=== PATIENT | male | born 1995 | race Hispanic/Latino ===

== ENCOUNTER 2023-05-18 13:35 | Inpatient (IN) | payer OTHER ==
[~2023-05-18] VITALS: Ht 180.3 cm; Wt 103.9 kg
[2023-05-18] MEDS ORDERED: MORPHINE 4 MG SYG ONE ×2 (13:58→19:14)
[2023-05-18] MEDS ORDERED: IOHEXOL 350 MG/ML 100ML INFUS..BTL IV ONE (14:03)
[2023-05-18 14:07] LABS: BASOPHILS # (AUTO) 0.09 K/uL (0.00-0.20); BASOPHILS % (AUTO) 0.6 % (0.0-5.0); EOSINOPHILS # (AUTO) 0.19 K/uL (0.00-0.70); EOSINOPHILS % (AUTO) 1.2 % (0.0-8.0); HEMATOCRIT 46.3 % (42-54); IMMATURE GRANULOCYTE ABSOLUTE 0.21 K/uL (0-1); LYMPHOCYTES # (AUTO) 3.8 K/uL (1.0-4.8); LYMPHOCYTES % (AUTO) 24.1 % (21.0-51.0); MEAN CORPUSCULAR HEMOGLOBIN 28.2 pg (27.0-33.0); MEAN CORPUSCULAR HGB CONC 34.6 g/dL (32.0-36.0); MEAN CORPUSCULAR VOLUME 81.5 fL (79-99); MONOCYTES # (AUTO) 0.9 K/uL (0.1-1.0); MONOCYTES % (AUTO) 5.4 % (3.0-13.0); NEUTROPHILS # (AUTO) 10.5 K/uL (1.8-7.7); NEUTROPHILS % (AUTO) 67.4 % (40.0-77.0); PLATELET COUNT (AUTO) 380 K/uL (130-400); RED BLOOD CELL COUNT(AUTO) 5.68 MIL/uL (4.50-6.20); RED CELL DISTRIBUTION WIDTH 12.1 % (11.0-15.5); WHITE BLOOD COUNT (AUTO) 15.6 K/uL (4.8-10.8)
[2023-05-18 14:16] LABS: POTASSIUM 4.2 mmol/L (3.5-5.1)
[2023-05-18 14:20] LABS: ALBUMIN 4.3 g/dL (3.5-5.0); BILIRUBIN,TOTAL 0.4 mg/dL (0.2-1.0); CREATINE KINASE, TOTAL 279 U/L (21-232); TOTAL PROTEIN, SERUM 8.5 g/dL (6.0-8.3)
[2023-05-18 14:21] LABS: ALCOHOL, BLOOD < 3 mg/dL (0-10)
[2023-05-18 14:48] LABS: APPEARANCE,URINE CLEAR (CLEAR); BILIRUBIN,URINE NEGATIVE (NEGATIVE); COLOR,URINE LIGHT-YELLOW (YELLOW); GLUCOSE, URINE (UA) NEGATIVE (NEGATIVE); KETONES,URINE NEGATIVE (NEGATIVE); LEUKOCYTE ESTERASE ,URINE NEGATIVE Leu/uL (NEGATIVE); NITRATE,URINE NEGATIVE (NEGATIVE); OCCULT BLOOD,URINE MODERATE (NEGATIVE); PH,URINE 5.5 (5.0-8.0); PROTEIN,URINE 30 mg/dL (NEGATIVE); UROBILINOGEN,URINE 0.2 mg/dL (0.2-1.0)
[2023-05-18 14:50] LABS: ADD UA MICROSCOPIC YES
[2023-05-18 14:51] LABS: AMPHET/METH SCREEN,URINE NEGATIVE (NEGATIVE); BARBITURATE SCREEN, URINE NEGATIVE (NEGATIVE); BENZODIAZEPINES SCREEN,URINE NEGATIVE (NEGATIVE); CANNABINOID SCREEN,URINE NEGATIVE (NEGATIVE); COCAINE SCREEN,URINE NEGATIVE (NEGATIVE); OPIATE SCREEN,URINE POSITIVE (NEGATIVE); PHENCYCLIDINE SCREEN,URINE NEGATIVE (NEGATIVE)
[2023-05-18 14:52] LABS: BACTERIA,URINE RARE /HPF (None Seen); MUCUS,URINE FEW LPF (None Seen); RBC,URINE 26-50 /HPF (0-1); SQUAMOUS EPITHELIAL CELL,UR RARE /HPF (0-2)
[2023-05-18] MEDS ORDERED: KETAMINE HCL 100 MG/ML 5ML VIAL IJ ONE (15:16)
[2023-05-18] MEDS ORDERED: LIDOCAINE HCL 1% 20 ML VIAL ONE (15:23)
[2023-05-18] MEDS ORDERED: TETANUS/DIPHTHERIA TOXOID [ADULT] 0.5 ML VIAL IM ONE (16:18)
[2023-05-18] MEDS ORDERED: FAMOTIDINE 20MG VIAL IV ONE (19:14)
[2023-05-18] MEDS ORDERED: ACETAMINOPHEN 325 MG TAB PO PRN ×2 (19:30→21:00)
[2023-05-18] MEDS ORDERED: ALBUTEROL 0.083% 2.5 MG/3 ML INH IH PRN (21:00)
[2023-05-18] MEDS ORDERED: HYDRALAZINE 20MG/ML VIAL IV PRN (21:00)
[2023-05-18] MEDS ORDERED: ONDANSETRON 4MG INJ IVP PRN (21:00)
[2023-05-18] MEDS ORDERED: MORPHINE 2 MG SYG IVP PRN (21:00)
[2023-05-18 22:08] VITALS: PULSE 78; RESP 16; O2SAT 99
[2023-05-18] MEDS: LACTATED RINGERS 1000ML 1,000 ML IV SCH (22:30)
[2023-05-18] MEDS: LIDOCAINE 4% ADH..PATCH TP SCH (22:34)
[2023-05-18] MEDS: HYDROMORPHONE 1 MG INJ IVP PRN (22:35)
[2023-05-18] MEDS: FAMOTIDINE 20MG TAB PO SCH (22:36)
[2023-05-18 23:15] VITALS: BP 132/81; PULSE 91; RESP 27
[2023-05-18 23:30] VITALS: BP 129/76; PULSE 82; RESP 22
[2023-05-18 23:45] VITALS: BP 138/71; PULSE 81; RESP 31
[2023-05-19] VITALS (51 sets, daily range): BP systolic 112–140; BP diastolic 60–98; PULSE 64–85; RESP 14–37; O2SAT 98–99
[2023-05-19] MEDS: LACTATED RINGERS 1000ML 1,000 ML IV SCH ×2 (05:40→18:23)
[2023-05-19] MEDS: LIDOCAINE 4% ADH..PATCH TP SCH (07:41)
[2023-05-19] MEDS: FAMOTIDINE 20MG TAB PO SCH ×2 (07:41→20:57)
[2023-05-19] MEDS ORDERED: FLU VACC QS2023-24(6MOS UP)/PF 60 MCG/0.5 ML IM ONE (08:00)
[2023-05-19] MEDS: HYDROMORPHONE 1 MG INJ IVP PRN ×2 (08:16→22:17)
[2023-05-19 10:22] LABS: BASOPHILS # (AUTO) 0.03 K/uL (0.00-0.20); BASOPHILS % (AUTO) 0.3 % (0.0-5.0); EOSINOPHILS # (AUTO) 0.02 K/uL (0.00-0.70); EOSINOPHILS % (AUTO) 0.2 % (0.0-8.0); IMMATURE GRANULOCYTE ABSOLUTE 0.05 K/uL (0-1); LYMPHOCYTES # (AUTO) 1.8 K/uL (1.0-4.8); LYMPHOCYTES % (AUTO) 17.4 % (21.0-51.0); MEAN CORPUSCULAR HEMOGLOBIN 27.9 pg (27.0-33.0); MEAN CORPUSCULAR HGB CONC 34.1 g/dL (32.0-36.0); MEAN CORPUSCULAR VOLUME 81.8 fL (79-99); MONOCYTES # (AUTO) 0.8 K/uL (0.1-1.0); MONOCYTES % (AUTO) 8.1 % (3.0-13.0); NEUTROPHILS # (AUTO) 7.6 K/uL (1.8-7.7); NEUTROPHILS % (AUTO) 73.5 % (40.0-77.0); PLATELET COUNT (AUTO) 269 K/uL (130-400); RED BLOOD CELL COUNT(AUTO) 4.77 MIL/uL (4.50-6.20); RED CELL DISTRIBUTION WIDTH 12.5 % (11.0-15.5); WHITE BLOOD COUNT (AUTO) 10.3 K/uL (4.8-10.8)
[2023-05-19 10:41] LABS: ALBUMIN 3.5 g/dL (3.5-5.0); BILIRUBIN,TOTAL 0.7 mg/dL (0.2-1.0); CREATININE 0.7 mg/dL (0.5-1.5); MAGNESIUM 1.8 mg/dL (1.80-2.40); PHOSPHORUS 3.4 mg/dL (2.5-4.9); POTASSIUM 4.2 mmol/L (3.5-5.1); TOTAL PROTEIN, SERUM 7.3 g/dL (6.0-8.3)
[2023-05-19] MEDS: HYDROCODONE/ACETAMINOPHEN 5/325 MG TAB PO PRN ×2 (12:13→17:10)
[2023-05-20] VITALS (9 sets, daily range): BP systolic 116–136; BP diastolic 70–81; PULSE 69–86; RESP 16–20; O2SAT 94–95
[2023-05-20] MEDS: LACTATED RINGERS 1000ML 1,000 ML IV SCH ×2 (04:02→12:33)
[2023-05-20 04:06] LABS: BASOPHILS # (AUTO) 0.03 K/uL (0.00-0.20); BASOPHILS % (AUTO) 0.3 % (0.0-5.0); EOSINOPHILS # (AUTO) 0.06 K/uL (0.00-0.70); EOSINOPHILS % (AUTO) 0.5 % (0.0-8.0); HEMATOCRIT 42.2 % (42-54); IMMATURE GRANULOCYTE ABSOLUTE 0.06 K/uL (0-1); LYMPHOCYTES # (AUTO) 2.2 K/uL (1.0-4.8); LYMPHOCYTES % (AUTO) 19.5 % (21.0-51.0); MEAN CORPUSCULAR HGB CONC 33.4 g/dL (32.0-36.0); MEAN CORPUSCULAR VOLUME 83.7 fL (79-99); MONOCYTES # (AUTO) 1.1 K/uL (0.1-1.0); MONOCYTES % (AUTO) 9.8 % (3.0-13.0); NEUTROPHILS # (AUTO) 7.8 K/uL (1.8-7.7); NEUTROPHILS % (AUTO) 69.4 % (40.0-77.0); PLATELET COUNT (AUTO) 275 K/uL (130-400); RED BLOOD CELL COUNT(AUTO) 5.04 MIL/uL (4.50-6.20); RED CELL DISTRIBUTION WIDTH 12.4 % (11.0-15.5); WHITE BLOOD COUNT (AUTO) 11.2 K/uL (4.8-10.8)
[2023-05-20 04:18] LABS: ALBUMIN 3.5 g/dL (3.5-5.0); BILIRUBIN,TOTAL 0.8 mg/dL (0.2-1.0); CREATININE 0.9 mg/dL (0.5-1.5); POTASSIUM 4.5 mmol/L (3.5-5.1); TOTAL PROTEIN, SERUM 7.5 g/dL (6.0-8.3)
[2023-05-20] MEDS: LIDOCAINE 4% ADH..PATCH TP SCH (09:49)
[2023-05-20] MEDS: FAMOTIDINE 20MG TAB PO SCH ×2 (09:49→20:17)
[2023-05-20] MEDS: HYDROCODONE/ACETAMINOPHEN 5/325 MG TAB PO PRN (16:24)
[2023-05-21] VITALS (9 sets, daily range): BP systolic 118–136; BP diastolic 54–87; PULSE 72–87; RESP 18–20; O2SAT 93–94
[2023-05-21] MEDS: FAMOTIDINE 20MG TAB PO SCH ×2 (08:29→19:49)
[2023-05-21] MEDS: LIDOCAINE 4% ADH..PATCH TP SCH (08:29)
[2023-05-21] MEDS: HYDROCODONE/ACETAMINOPHEN 5/325 MG TAB PO PRN ×2 (08:29→14:58)
[2023-05-22] MEDS: HYDROCODONE/ACETAMINOPHEN 5/325 MG TAB PO PRN ×2 (01:58→12:40)
[2023-05-22 04:16] VITALS: BP 115/70; PULSE 72; RESP 18
[2023-05-22 07:24] VITALS: BP 119/81; PULSE 75; RESP 16
[2023-05-22 07:25] VITALS: BP 136/62; PULSE 75; RESP 16; O2SAT 95
[2023-05-22] MEDS: LIDOCAINE 4% ADH..PATCH TP SCH (08:03)
[2023-05-22] MEDS: FAMOTIDINE 20MG TAB PO SCH (08:03)
[2023-05-22 11:28] VITALS: BP 137/75; PULSE 87; RESP 18
== END 2023-05-22 15:33 | disposition home or self-care (01) | DRG 199 ==
LOC: EDH 13:35 → EDHIP 13:36 → 2BH 22:15 → 2DH 05-19 18:25
PROVIDERS: ADMIT Surgery; ATTEND Surgery
PROC: 0W9930Z Drainage of Right Pleural Cavity with Drainage Device, Percutaneous Approach (ICD-10-PCS; principal; 2023-05-18)
DX: S27.0XXA Traumatic pneumothorax, initial encounter (principal); J96.01 Acute respiratory failure with hypoxia; S22.41XA Multiple fractures of ribs, right side, initial encounter for closed fracture; J98.11 Atelectasis; R74.01 Elevation of levels of liver transaminase levels; Y93.89 Activity, other specified; Y92.488 Other paved roadways as the place of occurrence of the external cause; Y99.8 Other external cause status; D72.829 Elevated white blood cell count, unspecified; V48.5XXA Car driver injured in noncollision transport accident in traffic accident, initial encounter
CPT/HCPCS: 36415; 70450; 71045; 71260; 72125; 72170; 74177; 80053; 80305; 81001; 82550; 83690; 83735; 84100; 85025; 86850; 86900; 86901; 90714; 94664; 96372; 96374; G0378; J1170; J2270; J3490; J7120; Q9967